=== PATIENT | female | born 1985 | race Caucasian/White ===

== ENCOUNTER 2021-09-07 19:00 | Inpatient (IN) | payer BC ==
[2021-09-08] MEDS ORDERED: Bupivacaine/Epinephrine 0.25% 30 ML VIAL ONE (06:00)
[2021-09-08] MEDS ORDERED: Misoprostol 100 MCG TAB ONE (07:39)
[2021-09-08] MEDS ORDERED: NS w/ Oxytocin 30 units 500 ML ONE ×2 (07:40→16:15)
[2021-09-08] MEDS ORDERED: Diphenoxylate HCl/Atropine Tablet PO PRN (07:46)
[2021-09-08] MEDS ORDERED: hydrALAZINE 20 MG/ML VIAL SLOW IVP PRN ×2 (07:46→15:06)
[2021-09-08] MEDS ORDERED: Misoprostol 100 MCG TAB VAG SCH (07:46)
[2021-09-08] MEDS ORDERED: NS w/ Oxytocin 30 units 500 ML IV SCH ×2 (07:46)
[2021-09-08] MEDS ORDERED: Carboprost 250 MCG/ML AMP IM PRN (07:46)
[2021-09-08] MEDS ORDERED: Lactated Ringer's 1,000 ML IV SCH (07:46)
[2021-09-08] MEDS ORDERED: Acetaminophen 500 MG TAB PO PRN (07:46)
[2021-09-08] MEDS ORDERED: Ondansetron PF 4 MG/2 ML Vial IVP PRN ×3 (07:46→15:06)
[2021-09-08] MEDS ORDERED: Misoprostol 200 MCG TAB PR PRN (07:46)
[2021-09-08] MEDS ORDERED: Butorphanol Tartrate 1 MG/ML VIAL SLOW IVP PRN (07:46)
[2021-09-08] MEDS ORDERED: Lidocaine 1% (PF) 30 ML VIAL SC PRN (07:46)
[2021-09-08] MEDS ORDERED: HYDROcodone/Acetaminophen 5/325 mg Tablet PO PRN ×3 (07:46→15:06)
[2021-09-08] MEDS ORDERED: Methylergonovine 0.2 MG/ML VIAL IM PRN (07:46)
[2021-09-08] MEDS ORDERED: Promethazine HCl 25 MG/ML VIAL IM PRN ×3 (07:46→15:06)
[2021-09-08] MEDS ORDERED: Ibuprofen 800 MG TAB PO PRN (07:46)
[2021-09-08 08:04] VITALS: BMI 29.9
[2021-09-08 08:06] LABS: Hemoglobin 12.9 g/dL (12.0-15.5); Mean Corpuscular HGB CONC 34.2 g/dL (32.0-36.0); Mean Corpuscular Hemoglobin 33.7 pg (27.0-33.0); Mean Corpuscular Volume 98.4 fl (81.6-98.3); Mean Platelet Volume 11.5 fl (7.4-10.4); Platelet Count 165 10x3/uL (150-450); Red Blood Cell (RBC) Count 3.83 10x6/uL (3.90-5.03); White Blood Cell (WBC) Count 11.4 10x3/uL (3.5-10.5)
[2021-09-08 08:40] LABS: Syphilis Antibody Nonreactive (Nonreactive); Syphilis Antibody Index 0.02 S/CO (<1.00 Non-Reactive)
[2021-09-08 08:41] LABS: Hep B Surf Ag Non-Reactive S/CO (NonReactive)
[2021-09-08 08:43] LABS: HBSAg Index 0.19 S/CO (0-0.99)
[2021-09-08] MEDS ORDERED: Fentanyl 2 mcg/Bup 0.1% Cadd 100 ML ONE (11:42)
[2021-09-08] MEDS ORDERED: ePHEDrine Sulfate 50 MG/10 ML VIAL SLOW IVP PRN (12:48)
[2021-09-08] MEDS ORDERED: Acetaminophen 325 MG TAB PO PRN (12:48)
[2021-09-08] MEDS ORDERED: diphenhydrAMINE 50 MG/ML VIAL IVP PRN (12:48)
[2021-09-08] MEDS ORDERED: Hydrocerin (Eucerin) Cream 120 gm Jar TOP PRN (12:48)
[2021-09-08] MEDS ORDERED: Lactated Ringer's 500 ML IV PRN (12:48)
[2021-09-08] MEDS ORDERED: Naloxone HCl 0.4 mg/ml Vial IVP PRN ×2 (12:48)
[2021-09-08] MEDS ORDERED: Fentanyl 2 mcg/Bupivacaine 0.1% Cassette 100 ML EPIDURAL SCH (13:00)
[2021-09-08] MEDS ORDERED: Communication Order-Pharmacy FS SCH (13:00)
[2021-09-08] MEDS ORDERED: Lanolin Ointment 7 GM TUBE TOP PRN (15:06)
[2021-09-08] MEDS ORDERED: Preparation H Ointment 28 GM TUBE PR PRN (15:06)
[2021-09-08] MEDS ORDERED: diphenhydrAMINE 25 MG CAP PO PRN (15:06)
[2021-09-08] MEDS ORDERED: Milk Of Magnesia 30 ML UDCUP PO PRN (15:06)
[2021-09-08] MEDS ORDERED: Benzocaine-Menthol 82.5 ML CAN TOP PRN (15:06)
[2021-09-08] MEDS ORDERED: Bisacodyl 10 MG SUPP PR PRN (15:06)
[2021-09-08] MEDS ORDERED: Boostrix 0.5 ML (Tdap) VIAL IM ONE (15:06)
[2021-09-08] MEDS: Ferrous Sulfate 325 MG TAB PO SCH (17:16)
[2021-09-08] MEDS: Ibuprofen 800 MG TAB PO SCH (21:10)
[2021-09-08] MEDS: Docusate 100 MG CAP PO SCH (21:12)
[2021-09-09] MEDS: Ibuprofen 800 MG TAB PO SCH ×3 (04:59→21:49)
[2021-09-09] MEDS: Docusate 100 MG CAP PO SCH ×2 (08:12→21:49)
[2021-09-09] MEDS: Prenatal Vitamin 1 TAB PO SCH (08:12)
[2021-09-09] MEDS: Ferrous Sulfate 325 MG TAB PO SCH (19:36)
[2021-09-10] MEDS: Ibuprofen 800 MG TAB PO SCH (05:06)
[2021-09-10] MEDS: Ferrous Sulfate 325 MG TAB PO SCH (07:12)
[2021-09-10 07:47] VITALS: BP 122/65; TEMP 98.2
[2021-09-10] MEDS: Prenatal Vitamin 1 TAB PO SCH (07:59)
[2021-09-10] MEDS: Docusate 100 MG CAP PO SCH (07:59)
== END 2021-09-10 11:05 | disposition home or self-care (01) | DRG 807 ==
LOC: CSHLD 09-08 06:36 → CSHPED 09-08 16:29
PROVIDERS: ADMIT Student in an Organized Health Care Education/Training Program; ATTEND Student in an Organized Health Care Education/Training Program
PROC: 10E0XZZ Delivery of Products of Conception, External Approach (ICD-10-PCS; principal; 2021-09-08)
PROC: 3E0334Z Introduction of Serum, Toxoid and Vaccine into Peripheral Vein, Percutaneous Approach (ICD-10-PCS; 2021-09-08)
PROC: 10D17Z9 Manual Extraction of Products of Conception, Retained, Via Natural or Artificial Opening (ICD-10-PCS; 2021-09-08)
PROC: 3E0P7VZ Introduction of Hormone into Female Reproductive, Via Natural or Artificial Opening (ICD-10-PCS; 2021-09-08)
PROC: 10907ZC Drainage of Amniotic Fluid, Therapeutic from Products of Conception, Via Natural or Artificial Opening (ICD-10-PCS; 2021-09-08)
DX: O26.893 Other specified pregnancy related conditions, third trimester (principal); Z37.0 Single live birth; Z67.11 Type A blood, Rh negative; Z3A.39 39 weeks gestation of pregnancy; Z88.8 Allergy status to other drugs, medicaments and biological substances; O43.193 Other malformation of placenta, third trimester
CPT/HCPCS: 36415; 51702; 85027; 85461; 86762; 86780; 86850; 86900; 86901; 87340; 90384; 96372; J7120